=== PATIENT | female | born 1980 | race Caucasian/White ===

== ENCOUNTER → 2017-12-06 15:53 | Outpatient (CLI) | payer OTHER, SELFPAY ==
[2017-12-06 18:01] LABS: AST(SGOT) 16 U/L (15-37); Alanine Aminotransfer ALT/SGPT 19 U/L (13-56); Albumin, Serum 3.8 g/dL (3.2-5.0); Alkaline Phosphatase 52 U/L (45-117); Bilirubin, Direct < 0.05 mg/dL (0.00-0.30); Globulin 3.9 g/dL (2.2-4.2); Protein, Total 7.7 g/dL (6.4-8.2)
[2017-12-06 18:43] LABS: Absolute Lymphocyte Count 0.92 X10^3/ul (0.83-4.51); Absolute Neutrophil Count 3.8 X10^3/uL (2.0-7.7); Basophil# 0.02 X10^3/uL; Basophil% 0.4 % (0-1); Eosinophil# 0.13 X10^3/uL; Eosinophils% 2.4 % (0-5); Hematocrit 36.1 % (37-47); Hemoglobin 11.4 g/dl (12.0-15.0); Lymphocyte # 0.92 X10^3/ul (4.0); Lymphocyte % 17.1 % (19-41); Mean Corp Hgb Conc 31.6 g/gl (32-36); Mean Corpuscular Hgb 26.1 pg (27.0-32.0); Mean Corpuscular Volume 82.6 fL (81-99); Monocyte# 0.48 X10^3/uL; Monocyte% 8.9 % (0-10); Neutrophil # 3.81 X10^3/uL (2.7-7.7); Platelet Count 253 K/mm3 (150-450); RBC Distribution Width CV 14.2 % (11.6-14.6); RBC Distribution Width SD 42.4 fl (35.1-43.9); Red Blood Count 4.37 M/mm3 (4.2-5.4); White Blood Count 5.4 K/mm3 (4.4-11.0)
[2017-12-06 19:04] LABS: POSITIVE COUNT NO; POSITIVE DIFFERENTIAL NO; POSITIVE MORPHOLOGY NO
== END ==
PROVIDERS: Family Provider Internal Medicine Adolescent Medicine; PCP Internal Medicine Adolescent Medicine; Visit Provider Internal Medicine Gastroenterology
DX: K50.90 Crohn's disease, unspecified, without complications (principal)
CPT/HCPCS: 36415; 80076; 85025

== ENCOUNTER → 2018-04-12 09:53 | Outpatient (CLI) | payer OTHER, SELFPAY ==
--- NOTE | 2018-04-12 10:12 | BD_ITS ---
STUDY: DUAL ENERGY X-RAY ABSORPTIOMETRY / DXA REASON FOR EXAM: Female, 37 years old. History of Crohn's disease. Occasional prednisone use. No loss of height. TECHNIQUE: Bone Mineral Density (BMD) measurements of lumbar spine and bilateral hips were obtained. COMPARISON: None. FINDINGS: Lumbar Spine (L1-L4): g/cm2 (1.110) / T-score (-0.7) / Z-score (-0.7) Findings are suggestive of normal bone density with a low fracture risk. Left Femur Total: g/cm2 (0.875) / T-score (-1.0) / Z-score (-0.9) Left Femoral Neck: g/cm2 (0.867) / T-score (-1.2) / Z-score (-0.9) Right Femur Total: g/cm2 (0.859) / T-score (-1.2) / Z-score (-1.0) Right Femoral Neck: g/cm2 (0.811) / T-score (-1.6) / Z-score (-1.3) BD/Dexa Bone Density Study IMPRESSION: The patient is considered osteopenic as outlined below according to World Gurmeet Organization (WHO) criteria with a moderate fracture risk. Reference Information: The T-score is the number of standard deviations above or below the standard which is normal for young adults at their peak bone mineral density. The World Health Organization (WHO) interprets the T-scores as follows: Above -1 Normal bone density Between -1 and -2.5 Osteopenia Equal to / or below -2.5 Osteoporosis As a practical clinical guideline, osteopenia may be graded as follows: Mild -1 through -1.5 Moderate -1.6 through -2.0 Severe -2.1 through -2.4 The Z-score is the number of standard deviations above or below age-matched controls. A Z-score of less than -1.5 would be considered abnormal. References: 1. NIH Osteoporosis and Related Bone Diseases http://www.osteo.org 2. International Society for Clinical Densitometry http://www.iscd.org 3. National Osteoporosis Foundation http://www.nof.org Electronically Signed: Mitch Holbrook MD at 13:57 EST Tel [phone], Service support ,
== END ==
PROVIDERS: Family Provider Internal Medicine Adolescent Medicine; PCP Internal Medicine Adolescent Medicine; Referring Provider Internal Medicine Gastroenterology; Visit Provider Internal Medicine Gastroenterology
DX: K50.90 Crohn's disease, unspecified, without complications (principal)
CPT/HCPCS: 77080

== ENCOUNTER → 2018-04-24 18:42 | Outpatient (CLI) | payer OTHER, SELFPAY ==
[2018-04-27 15:09] LABS: HPV Reflexed? NOT INDICATED
--- OUTSIDE RECORDS SUMMARY | 2018-06-06 16:48 | XMS RPT_ITS ---
:1980 Author Organization OHIP Care Team Providers Name Role Phone Twan Enriquez Attending Unavailable Twan Enriquez Referring Unavailable Kendis, Laurie Primary Care Unavailable Twan Enriquez Attending Unavailable Twan Enriquez Referring Unavailable Kendis, Laurie Primary Care Unavailable Twan Enriquez Attending Unavailable Twan Enriquez Referring Unavailable Kendis, Laurie Primary Care Unavailable Nikki Blanton Attending Unavailable Kendis, Laurie Primary Care Unavailable Nikki Blanton Referring Unavailable Twan Enriquez Attending Unavailable Laurie Haque Primary Care Unavailable Richie Osorio Attending Unavailable Garland Laurie Referring Unavailable Garland, Laurie Primary Care Unavailable HardySarah R Attending Unavailable PROBLEMS PROBLEMS DATE TYPE CONDITION / ATTENDING STATUS SOURCE CODE 04/26/2018 Unknown Z12.4 - Nikki Blanton Active [place] Encounter for Community screening for Hospital malignant Repository neoplasm of cervix / Z12.4(ICD-10) 04/11/2018 Admitting Unknown / Sarah Dash Active [facility] Medical diagnosis UNK(Unknown) [facility] [place] Repository 01/13/2018 Admitting Malignant [place], Active [email or web address] Diagnosis melanoma of Richie System other part of Repository trunk / C43.59(ICD-10) 01/13/2018 Admitting Abnormal [place], [facility] Diagnosis results of Richie System function Repository studies of organs and systems / R94.8(ICD-10) PROCEDURES PROCEDURES No Procedure Records FoundRESULTS RESULTS Observed: 04/24/2018 Status: F Source: [facility] CULTURE, URINE 4:00 PM [facility] [place] Urine Culture ORGANISM 1: Streptococcus agalactiae (B) [place] Count 80,000-100,000 Streptococcus agalactiae (B): REACTION Ampicillin $ <=0.25 S Benzylpenicillin NF <=0.6 S Inducable Clindamycin Resistan - Linezolid $$$$ <=2 S Vancomycin $ 0.5 S (NF) indicates non-formulary drug at [facility]. Approval by Infectious Disease Specialist required before non-formulary drugs may be ordered and/or dispensed. * CLSI guidelines does not recommend testing of cephalosporins. This interpretation is deduced from Beta-lactam/penicillin results. Performed By: #### M100.0650 #### [facility] [address] [place], [place], [address] PAP I-G W/RFX HRHPV Collected: 04/24/2018 Status: F Source: [facility] 4:00 PM [facility] [place] [facility] Order Comment: Specimen Comment: No. of containers..01 ThinPrep Vial TYPE CODE TESTS RESULT OUT OF RANGE REFERENCE UNITS LAB L7400.0800 . Normal DIAGN Comment Result Comment: NEGATIVE FOR INTRAEPITHELIAL LESION AND MALIGNANCY. LAB L7400.0900 . Normal ADEQ Comment Result Comment: Satisfactory for evaluation. Endocervical and/or squamous metaplastic cells (endocervical component) are present. LAB L7400.1400 . Normal PERFORM Comment Result Comment: Jennifer Boss, Website Designer (ASCP) LAB L7400.2575 . Normal TEST METHOD Comment Result Comment: This liquid based ThinPrep(R) pap test was screened with the use of an image guided system. LAB L7400.2600 . Normal . COMM LAB L7400.2700 . Normal PAPSMR Comment Result Comment: The Pap smear is a screening test designed to aid in the detection of premalignant and malignant conditions of the uterine cervix. It is not a diagnostic procedure and should not be used as the sole means of detecting cervical cancer. Both false-positive and false-negative reports do occur. LAB L7400.2800 . Normal HPV RFLX Comment Result Comment: The HPV DNA reflex criteria were not met with this specimen result therefore, no HPV testing was performed. Performed at: [facility] [address] [id number] [place] Worker: Jenise Nath MD, Phone: [phone] Performed By: #### L7400.0350 #### [facility] (refer to report for specific site) refer to report for address and phone number DEXA BONE DENSITY Observed: 04/12/2018 Status: F Source: [facility] STUDY 9:57 AM [facility] [place] [facility] [facility] Imaging Services [address] [place] [address] Dexa Bone Density Study MR#: [id number] Acct: [id number] Name: FILOMENA NIÑONIMICHAEL Howard Rep #: [id number] : 1980 F 37 From: Mitch Holbrook MD PCP: Laurie Haque MD Status: [facility] Study: Dexa Bone Density Study Date of Exam: 04/12/18 Exam# [id number] Ordering Dr: Twan Enriquez MD STUDY: DUAL ENERGY X-RAY ABSORPTIOMETRY / DXA REASON FOR EXAM: Female, 37 years old. History of Crohn's disease. Occasional prednisone use. No loss of height. TECHNIQUE: Bone Mineral Density (BMD) measurements of lumbar spine and bilateral hips were obtained. COMPARISON: None. FINDINGS: Lumbar Spine (L1-L4): g/cm2 (1.110) / T-score (-0.7) / Z-score (-0.7) Findings are suggestive of normal bone density with a low fracture risk. Left Femur Total: g/cm2 (0.875) / T-score (-1.0) / Z- score (-0.9) Left Femoral Neck: g/cm2 (0.867) / T-score (-1.2) / Z- score (-0.9) Right Femur Total: g/cm2 (0.859) / T-score (-1.2) / Z- score (-1.0) Right Femoral Neck: g/cm2 (0.811) / T-score (-1.6) / Z-score (-1.3) BD/Dexa Bone Density Study IMPRESSION: The patient is considered osteopenic as outlined below according to World Gurmeet Organization (WHO) criteria with a moderate fracture risk. Reference Information: The T-score is the number of standard deviations above or below the standard which is normal for young adults at their peak bone mineral density. The World Health Organization (WHO) interprets the T-scores as follows: Above -1 Normal bone density Between -1 and -2.5 Osteopenia Equal to / or below -2.5 Osteoporosis As a practical clinical guideline, osteopenia may be graded as follows: Mild -1 through -1.5 Moderate -1.6 through -2.0 Severe -2.1 through -2.4 The Z-score is the number of standard deviations above or below age-matched controls. A Z-score of less than -1.5 would be considered abnormal. References: 1. NIH Osteoporosis and Related Bone Diseases http://www.osteo.org 2. International Society for Clinical Densitometry http://www.iscd.org 3. National Osteoporosis Foundation http://www.nof.org Electronically Signed: Mitch Holbrook MD at 13:57 EST Tel [phone], Service support , CC: Laurie Haque MD; Twan Enriquez Director Banking: Signed CBC W/DIFF Collected: 04/11/2018 Status: F Source: [facility] 11:10 AM [facility] REPOSITORY TYPE CODE TESTS RESULT OUT OF RANGE REFERENCE UNITS LAB L200.16873 4.5-11.0 K/CU MM WBC Normal 5.6 LAB L200.18784 3.90-5.30 M/CU MM RBC Normal 4.65 LAB L200.42171 11.5-15.5 G/DL HGB Normal 12.2 LAB L200.33641 35.0-47.0 % HCT Normal 40.0 LAB L200.27691 80.0-99.0 fl MCV Normal 86.0 LAB L200.48204 32.0-36.0 GM/DL Low MCHC 30.5 LAB L200.49368 11-14.5 RDW Normal 13.7 LAB L200.69905 9.4-12.4 MPV Normal 12.4 LAB L200.36532 150-450 K/CU MM PLT Normal 281 LAB L200.05119 45-75 % NEUTROPHILS Normal % 74.1 LAB L200.61380 Less than 2 % IMMATURE Normal GRAN % 0.4 LAB L200.14109 20-40 % Low LYMPH % 14.8 LAB L200.42728 2-10 % MONOCYTE % Normal 7.8 LAB L200.77597 0-5 % EOSINOPHIL Normal % 2.0 LAB L200.68929 0-2 % BASOPHIL % Normal 0.9 LAB L200.33719 2.0-8.3 K/CU MM NEUTROPHIL Normal ABS 4.20 LAB L200.65761 Less than 2 K/CU MM IMMATR GRAN Normal ABS 0.00 LAB L200.22265 0.9-4.4 K/CU MM Low LYMPH ABS 0.80 LAB L200.69209 0.1-1.1 K/CU MM MONO ABS Normal 0.40 LAB L200.23846 0-0.5 K/CU MM EOS ABS Normal 0.10 LAB L200.76683 0-0.2 K/CU MM BASO ABS Normal 0.10 LAB L200.40289 Less than 1 % NRBC Normal 0.0 Performed By: #### L200.57502 #### [facility] [address] [place] [address] # [phone] CMP Collected: 04/11/2018 Status: F Source: [facility] 11:10 AM [facility] REPOSITORY TYPE CODE TESTS RESULT OUT OF RANGE REFERENCE UNITS LAB L500.03916 136-145 MMOL/L Normal NA 139 LAB L500.49840 3.5-5.1 MMOL/L Normal K 5.1 LAB L500.48389 98-107 MMOL/L Normal CL 105 LAB L500.26518 21-32 MMOL/L Normal CO2 26 LAB L500.95449 5-16 MMOL/L Normal AGAP 7 LAB L500.01654 70-100 MG/DL Normal GLU 84 Result Comment: 70-100- Normal Fasting; 100-125 Impaired Fasting; greater than 126 on more than one result- Diabetes. ADA guidelines. Results may be falsely elevated after the administration of Sulfapyridine. Results may be falsely depressed after the administration of Sulfasalazine. LAB L500.73462 7-26 MG/DL Normal BUN 16 LAB L500.16564 0.510-0.950 MG/DL Normal CREAT 0.793 Result Comment: Patients receiving either N-Acetylcysteine (NAC) or Metamizole prior to venipuncture, may have falsely depressed results. LAB L500.15396 15-24 Normal BUN/CREA 20 LAB L500.39066 6.0-8.5 GM/DL Normal TP 8.1 LAB L500.16726 3.2-5.0 GM/DL Normal ALBUMIN 4.3 LAB L500.70840 2.2-4.2 GM/DL Normal GLOBULIN 3.8 LAB L500.50029 0.8-2.0 Normal A/G RATIO 1.1 LAB L500.47658 8.5-10.1 MG/DL Normal CALCIUM TOTAL 9.3 LAB L500.26876 0.2-1.0 MG/DL Normal BILI TOTAL 0.5 LAB L500.73815 8-34 U/L Normal SGOT (AST) 12 Result Comment: RESULTS MAY BE FALSELY DEPRESSED AFTER THE ADMINISTRATION OF SULFASALAZINE AND/OR SULFAPYRIDINE. LAB L500.64884 13-61 IU/L Normal SGPT (ALT) 17 Result Comment: RESULTS MAY BE FALSELY DEPRESSED AFTER THE ADMINISTRATION OF SULFASALAZINE AND/OR SULFAPYRIDINE. LAB L500.00639 45-117 U/L Normal ALK PHOS 58 Performed By: #### L500.56108, L500.95255, L500.55784, L500.93241, L550.89171 #### [facility] [place] [address] GFR EST Collected: 04/11/2018 Status: F Source: [facility] 11:10 AM [facility] REPOSITORY TYPE CODE TESTS RESULT OUT OF RANGE REFERENCE UNITS LAB L500.19338 ML/MIN Normal IF non-AFR Greater than AMER 60 LAB L500.56045 ML/MIN Normal IF Greater than AMER 60 Performed By: #### L500.41509, L500.49592, L500.21325, L500.92696, L550.05185 #### [facility] [address] [place] [address] LIPID Collected: 04/11/2018 Status: F Source: [facility] 11:10 AM [facility] REPOSITORY TYPE CODE TESTS RESULT OUT OF RANGE REFERENCE UNITS LAB L500.48859 30-149 MG/DL Normal TRIG 126 Result Comment: Patients receiving either N-Acetylcysteine (NAC) or Metamizole prior to venipuncture, may have falsely depressed results. LAB L500.66054 0-199 MG/DL High CHOL 209 LAB L500.79428 GREATER TN 40 MG/DL Normal HDL DIRECT 58 Result Comment: Patients receiving Metamizole prior to venipuncture, may have falsely depressed results. LAB L500.94535 0-129 MG/DL Normal LDL 126 Result Comment: ___CHOLESTEROL/HDL RATIO RISK___ CHD RISK = Total CHOL LDL HDL (CHOL/HDL) Recommended <200 <130 >35 <3.4 Borderline 200-239 130-159 3.4-4.99 High >240 >160 >5.0 Performed By: #### L500.32256, L500.72048, L500.76049, L500.07331, L550.55364 #### [facility] [place] [address] TSH Collected: 04/11/2018 Status: F Source: [facility] 11:10 AM [facility] REPOSITORY TYPE CODE TESTS RESULT OUT OF RANGE REFERENCE UNITS LAB L500.96176 0.358-3.740 UIU/ML Normal TSH 1.640 Result Comment: 3rd generation ultra sensitive TSH Performed By: #### L500.46449, L500.94736, L500.60375, L500.93134, L550.01225 #### [facility] [address] [place] [address] [id number] Collected: 04/11/2018 Status: F Source: [facility] 11:10 AM [facility] REPOSITORY TYPE CODE TESTS RESULT OUT OF RANGE REFERENCE UNITS LAB L550.53401 30.0-100.0 NG/ML Low 25.2 [id number] XY Result Comment: Deficiency Less than 20 ng/mL Insufficiency 20 - Less than 30 ng/mL Sufficiency 30 - 100 ng/mL Performed By: #### L500.10115, L500.92175, L500.02009, L500.86774, L550.66829 #### [facility] [address] [place] [id number] Observed: 04/11/2018 Status: F Source: [facility] URINE CULTURE 11:10 AM [facility] REPOSITORY ORGANISM 1: PROTEUS MIRABILIS COLONY COUNT >100,000 PROTEUS MIRABILIS: REACTION AMIKACIN <16 S AMPICILLIN <8 S CEFAZOLIN <8 S CEFEPIME <4 S CEFOTAXIME <2 S CEFTAZIDIME <1 S CEFUROXIME <4 S CIPROFLOXACIN <1 S GENTAMICIN <4 S ERTAPENEM <2 S NITROFURANTOIN >64 R PIPERACILLIN/TAZOBACTAM <16 S TOBRAMYCIN <4 S TRIMETH/SULFA <2/38 S LEVOFLOXACIN <2 S MEROPENEM <1 S ORGANISM 2: ESCHERICHIA COLI COLONY COUNT >100,000 ESCHERICHIA COLI: REACTION AMIKACIN <16 S AMPICILLIN >16 R CEFAZOLIN >16 R CEFEPIME <4 S CEFOTAXIME <2 S CEFTAZIDIME <1 S CEFUROXIME 8 S CIPROFLOXACIN <1 S GENTAMICIN <4 S IMIPENEM <1 S ERTAPENEM <2 S NITROFURANTOIN <32 S PIPERACILLIN/TAZOBACTAM <16 S TOBRAMYCIN <4 S TRIMETH/SULFA <2/38 S LEVOFLOXACIN <2 S MEROPENEM <1 S Performed By: #### M100.65114 #### [facility] [address] [place], [place] [address] NM LYMPHATICS - LYMPH Observed: 01/13/2018 Status: F Source: [email or web address] 10:14 AM SYSTEM REPOSITORY Patient Name: RERE NIÑO Nuc Med Exam Date/Time 01/13/2018 10:00:48 EDT Exam NM Lymphatics - Lymph Glands Imaging Ordering Physician Marcos OSORIO LAWRENCE Accession Number [id number] CPT4 Codes 45582 () Reason For Exam melanoma rt lat chest Report LYMPHOSCINTIGRAPHY CLINICAL INDICATION: Melanoma, right upper chest Approximately 1.1 millicuries of technetium 99-m ultrafiltered sulfur colloid was injected in four divided doses intradermally around the patient's lesion located on the right upper chest utilizing sterile technique. The patient tolerated the procedure well. COMPARISON: None FINDINGS: There was prompt migration of tracer into a single right axillary lymph node. A CD of the films was sent with the patient prior to surgery. Report Dictated on Final Dictated: 01/13/2018 10:14 am Dictating Physician: ADRI KENNEDY Signed Date and Time: 01/13/2018 10:14 am Signed by: ADRI KENNEDY Transcribed Date and Time: 01/13/2018 10:14 LIVER PROFILE Collected: 12/06/2017 Status: F Source: [facility] 3:58 PM [facility] [place] Order Comment: [id number] TYPE CODE TESTS RESULT OUT OF RANGE REFERENCE UNITS LAB L501.1500 6.4-8.2 g/dL Normal T PROT 7.7 LAB L501.1800 3.2-5.0 g/dL Normal ALB 3.8 LAB L501.1950 2.2-4.2 g/dL Normal GLOB 3.9 LAB L501.4100 15-37 U/L Normal AST 16 LAB L501.4305 45-117 U/L Normal ALK P 52 LAB L501.4405 13-56 U/L Normal ALT 19 LAB L501.4600 0.20-1.00 mg/dL Normal T BILI 0.20 LAB L501.4700 0.00-0.30 mg/dL Normal D BILI < 0.05 Performed By: #### L500.3400 #### [facility] [address] [place], [place], [address] CBC W/DIFF, AUTOMATED Collected: 12/06/2017 Status: F Source: [facility] 3:58 PM [facility] [place] [facility] TYPE CODE TESTS RESULT OUT OF RANGE REFERENCE UNITS LAB L100.1000 4.4-11.0 K/mm3 Normal WBC 5.4 LAB L100.1200 4.2-5.4 M/mm3 Normal RBC 4.37 LAB L100.1300 12.0-15.0 g/dl Low HGB 11.4 LAB L100.1400 37-47 % Low HCT 36.1 LAB L100.1500 81-99 fL Normal MCV 82.6 LAB L100.1600 27.0-32.0 pg Low MCH 26.1 LAB L100.1700 32-36 g/gl Low MCHC 31.6 LAB L100.1810 11.6-14.6 % Normal RDW CV 14.2 LAB L100.1820 35.1-43.9 fl Normal RDW SD 42.4 LAB L100.1900 150-450 K/mm3 Normal PLT 253 LAB L100.2000 6.2-12.0 fl Normal MPV 12.0 LAB L100.2100 47-70 % High NEUT% 71.0 LAB L100.2200 19-41 % Low LY% 17.1 LAB L100.2300 0-10 % Normal MONO% 8.9 LAB L100.2400 0-5 % Normal EO% 2.4 LAB L100.2500 0-1 % Normal BASO% 0.4 LAB L100.2550 0.0-0.9 % Normal IM GRAN % 0.200 Result Comment: IG% - Immature Granulocytes (promyelocytes, myelocytes and metamyelocytes) > 1% indicates that a LEFT SHIFT is Present. LAB L100.2620 2.0-7.7 X10 3/uL Normal Absolute Neut 3.8 LAB L100.2720 0.83-4.51 X10 3/ul Normal Absolute Lymph 0.92 Performed By: #### L100.0100 #### [facility] [address] [place], [address] CBC W/DIFF, AUTOMATED Collected: 06/07/2017 Status: F Source: [facility] 12:03 PM [facility] [place] TYPE CODE TESTS RESULT OUT OF RANGE REFERENCE UNITS LAB L100.1000 4.4-11.0 K/mm3 Normal WBC 6.4 LAB L100.1200 4.2-5.4 M/mm3 Normal RBC 4.82 LAB L100.1300 12.0-15.0 g/dl Normal HGB 13.1 LAB L100.1400 37-47 % Normal HCT 41.6 LAB L100.1500 81-99 fL Normal MCV 86.3 LAB L100.1600 27.0-32.0 pg Normal MCH 27.2 LAB L100.1700 32-36 g/gl Low MCHC 31.5 LAB L100.1810 11.6-14.6 % Normal RDW CV 13.5 LAB L100.1820 35.1-43.9 fl Normal RDW SD 42.0 LAB L100.1900 150-450 K/mm3 Normal PLT 345 LAB L100.2000 6.2-12.0 fl Normal MPV 11.3 LAB L100.2100 47-70 % Normal NEUT% 68.1 LAB L100.2200 19-41 % Normal LY% 19.6 LAB L100.2300 0-10 % Normal MONO% 9.9 LAB L100.2400 0-5 % Normal EO% 1.9 LAB L100.2500 0-1 % Normal BASO% 0.3 LAB L100.2550 0.0-0.9 % Normal IM GRAN % 0.200 Result Comment: IG% - Immature Granulocytes (promyelocytes, myelocytes and metamyelocytes) > 1% indicates that a LEFT SHIFT is Present. LAB L100.2620 2.0-7.7 X10 3/uL Normal Absolute Neut 4.3 LAB L100.2720 0.83-4.51 X10 3/ul Normal Absolute Lymph 1.25 Performed By: #### L100.0100 #### [facility] [address] [place] [address]. [place], [place], [address] LIVER PROFILE Collected: 06/07/2017 Status: F Source: [facility] 12:03 PM [facility] [place] [facility] TYPE CODE TESTS RESULT OUT OF RANGE REFERENCE UNITS LAB L501.1500 6.4-8.2 g/dL High T PROT 8.6 LAB L501.1800 3.4-5.0 g/dL Normal ALB 4.1 Result Comment: Please note revised Albumin AND Globulin reference range effective 2017. LAB L501.1950 2.2-4.2 g/dL High GLOB 4.5 LAB L501.4100 15-37 U/L Normal AST 26 LAB L501.4305 45-117 U/L Normal ALK P 79 LAB L501.4405 12-78 U/L Normal ALT 41 LAB L501.4600 0.20-1.00 mg/dL Normal T BILI 0.50 LAB L501.4700 0.00-0.30 mg/dL Normal D BILI 0.07 Performed By: #### L500.3400 #### [facility] [address] [place], [address] ALLERGIES ALLERGIES DATE TYPE / CODE NAME / CODE REACTION SEVERITY SOURCE 03/29/2017 Drug No Known Unknown [facility] Allergy/4160 Allergies/F00 Hospital 00551(SNOMED 5638135(RXNOR Repository CT) M) ENCOUNTERS ENCOUNTERS ADMIT/DISCHARGE ACCOUNT NUMBER ADMITTING ENCOUNTER LOCATION SOURCE CLASS 05/04/2018 [id number] [facility] ding:LAB.FUT Repository URE 04/24/2018 [id number] [facility] ding:LABSPEC Repository 04/12/2018 [id number] [facility] ding:OPBD Repository 04/11/2018 [id number] [facility] [place] ng:H.ELS 01/13/2018 [id number] [facility] Repository 12/06/2017 [id number] [facility] ding:MTLAB Repository 06/07/2017 [id number] [facility] ding:MTLAB Repository PAYERS PAYERS ENCOUNTER GUARANTOR PAYER SUBSCRIBER SOURCE 05/04/2018 A[facility]BEL [id number] [facility] [address]Oaj: (330) Number: Effective Repository [phone] () Date:2018-05-04 04/24/2018 ANABEL [id number] Primary ANABEL KEYOB: [facility] Insurance:MEDICAL [id number] [id number]: (330) Number: Repository [phone] () [id number] Date:[id number] [address] [address]DG: 04/24/2018 Secondary NOT GIVENUNK [place] Insurance:SELF PAY [facility] Number: Effective Repository Date:2018-04-24 04/12/2018 ANABEL E [id number] Primary ANABEL E STINEDOB: [place] [facility] Insurance:MEDICAL [id number] Health [id number]: (330) Number: Repository [phone] () [id number] Date:[id number] [address] [address]OT: 04/12/2018 Secondary NOT GIVENUNK [place] Insurance:SELF PAY [facility] Number: Effective Repository Date:2018-04-04 04/11/2018 RERE Howard Primary ANABEL STINECritical access hospital Medical [id number] THERESE Insurance:[facility] PPO ACCESS/Policy Repository [place], [place] Number: [phone]: 330 [id number] [phone] (HP) Date: 01/13/2018 Rere Howard Primary Anabel StineDOB: [facility] Snapshot Interactive StineDOB: Insurance:Medical [id number] System [id number] [facility] Number: Effective [place], [place] Date: [address]Vnm: (HP) 12/06/2017 Anabel E [id number] Primary Anabel E StineDOB: [place] [facility] Insurance:MEDICAL [id number] Health [id number]: (330) Number: Repository [phone] () [id number] Date:0502-41-49TS [address] [address]DJ: 12/06/2017 Secondary NOT GIVENUNK [place] Insurance:SELF PAY [facility] Number: Effective Repository Date:2017-12-06 06/07/2017 Anabel E [id number] Primary Anabel E StineDOB: [place] [facility] Insurance:MEDICAL [id number] [facility] [address]Oqh: (330) Number: Repository [phone] () [id number] Date:[address] [address]RN: 06/07/2017 Secondary NOT GIVENUNK [place] Insurance:SELF PAY [facility] Number: Effective Repository Date:2017-06-07
--- OUTSIDE RECORDS SUMMARY | 2018-06-06 16:48 | XMS RPT_ITS ---
:1980 Author Organization [facility] Address [address] [place] [address] Phone Care Team Providers Name Role Phone Anita Osorio MD Unavailable Reason for Visit Reason For Visit Description Start Date New - 1st visit with practice Preliminary reason for visit data, not yet signed by the author as of melanoma right lateral chest Preliminary reason for visit data, not yet signed by the author as of Chief Complaint Chief Complaint Description Start Date melanoma right lateral chest Preliminary chief complaint data, not yet signed by the author as of Instructions Instruction Description Start Date Completed Plan of Care Type Date Detail Appointment 01:00 PM Anita Osorio MD, [address] [facility], [facility], [place], [address], Medications Medication Instructions Start Stop Generic Name NDC Provider Date Date IRON 142 (45 takes 2 tablets FERROUS [id number] Salud Fe) MG CR-TABS daily 8 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 Vital Signs Date Name Value Unit Description BMI (Body Mass 22.03 kg/m2 Body Mass Index Index) [Ratio] Preliminary vital sign data, not yet signed by the author as of BP Diastolic 82 mm[Hg] blood pressure, diastolic Preliminary vital sign data, not yet signed by the author as of BP Systolic 134 mm[Hg] blood pressure, systolic Preliminary vital sign data, not yet signed by the author as of Heart Rate 88 /min pulse rate E&M Preliminary vital sign data, not yet signed by the author as of Height 62 [in_us] height E&M Preliminary vital sign data, not yet signed by the author as of Height 157 cm height in centimeters E&M Preliminary vital sign data, not yet signed by the author as of Weight Measured 120 [lb_av] weight E&M Preliminary vital sign data, not yet signed by the author as of Weight Measured 55 kg weight in kilograms E&M Preliminary vital sign data, not yet signed by the author as of Results Date Name Value Unit Range Flag Description Office Visit: New - 1st visit with practice, Rm: MEDS REVIEW Done Documentation of current medications (procedure) Preliminary observation data, not yet signed by the author as of Preliminary observation data, not yet signed by the author as of Clinical Summary: HMSPatientID POP account number Clinical Lists Update: Preload Extended SMOK STATUS never smoker Tobacco smoking status NDIS Clinical Summary: Scanned History Summary DEP EXERCISE No data entered by patient, exercise history DEP DRUG USE No data entered by patient, drug (of abuse) use DEP SH CSMO never smoker data entered by patient, social history, current smoker DEP ETOH USE No data entered by patient, alcohol (ethanol or ETOH) use [facility] 2 floors housing unit size (asthma environmental history, housing) (from single family to don't know) #DEP CHLDRN Yes Number of dependent children [place] house Housing Type: apartment, house, fpc, trailer, none DEP SH MAST data entered by patient, social history, marital status DEP EMPLOYER unemployed data entered by patient, Employer Name DEP ALG LIST I don't have any Data entered by Drug AllergiesI patient, allergy don't have any list Environmental AllergiesI don't have any Food Allergies DEP MED LIST [id number] Data entered by injection-Every patient, other medication list [id number] SISTER A/D I do not have any sister of sisters. My patient(s) alive sister(s)' health or history is unknown. BROTHERS A/D I do not have any brother(s) of brothers. My patient alive or brother(s)' health history is unknown. MOTHER A/D Alive mother of patient is alive or DEP MOM PMH High blood data entered by pressure patient, mother's medical history FATHER A/D Alive father of patient is alive or DEP DAD PMH Heart diseaseHigh data entered by blood pressure patient, father's medical history DEP PMH Crohn's disease data entered by patient, past medical history DEP SURGERY section Data entered by patient, history of past surgeries Procedures Code Procedure Name Date Entry Date G8732 Pain assessment not documented - reason not given G8427 Current medications documented 1036F Tobacco screening was negative - non user G8420 BMI documented within normal parameters - no follow-up plan is required G8783 Blood pressure within normal parameters - no follow-up required [id number] Patient Encounter Medications Administered No information available. Immunizations No information available. Advance Directives There may be information available, but it has not been provided by the sender. Assessments There may be information available, but it has not been provided by the sender. Review of Systems There may be information available, but it has not been provided by the sender. Family History There may be information available, but it has not been provided by the sender. History of Past Illness There may be information available, but it has not been provided by the sender. History of Present Illness There may be information available, but it has not been provided by the sender.
== END ==
PROVIDERS: Family Provider Internal Medicine Adolescent Medicine; PCP Internal Medicine Adolescent Medicine; Referring Provider Obstetrics & Gynecology; Visit Provider Obstetrics & Gynecology
DX: Z12.4 Encounter for screening for malignant neoplasm of cervix (principal)
CPT/HCPCS: 87077; 87086; 87088; 87186; 88175; G0145

== ENCOUNTER → 2018-08-16 11:04 | Outpatient (CLI) | payer OTHER, SELFPAY ==
[2018-08-16 14:03] LABS: Absolute Lymphocyte Count 1.06 X10^3/ul (0.83-4.51); Absolute Neutrophil Count 5.2 X10^3/uL (2.0-7.7); Basophil# 0.02 X10^3/uL; Basophil% 0.3 % (0-1); Eosinophil# 0.14 X10^3/uL; Hematocrit 40.9 % (37-47); Hemoglobin 12.6 g/dl (12.0-15.0); Lymphocyte # 1.06 X10^3/ul (4.0); Lymphocyte % 15.5 % (19-41); Mean Corp Hgb Conc 30.8 g/gl (32-36); Mean Corpuscular Hgb 25.8 pg (27.0-32.0); Mean Corpuscular Volume 83.8 fL (81-99); Mean Platelet Vol. 11.7 fl (6.2-12.0); Monocyte# 0.48 X10^3/uL; Neutrophil # 5.15 X10^3/uL (2.7-7.7); Neutrophil % 75.1 % (47-70); POSITIVE COUNT NO; POSITIVE DIFFERENTIAL NO; POSITIVE MORPHOLOGY NO; Platelet Count 283 K/mm3 (150-450); RBC Distribution Width CV 13.2 % (11.6-14.6); RBC Distribution Width SD 39.8 fl (35.1-43.9); Red Blood Count 4.88 M/mm3 (4.2-5.4); White Blood Count 6.9 K/mm3 (4.4-11.0)
[2018-08-16 14:20] LABS: AST(SGOT) 20 U/L (15-37); Alanine Aminotransfer ALT/SGPT 20 U/L (13-56); Albumin, Serum 3.8 g/dL (3.2-5.0); Alkaline Phosphatase 52 U/L (45-117); Bilirubin, Direct 0.08 mg/dL (0.00-0.30); Globulin 4.3 g/dL (2.2-4.2); Protein, Total 8.1 g/dL (6.4-8.2)
[2018-08-16 14:23] LABS: Vitamin D,25 Hydroxy 42.1 ng/mL (29.95-100.01)
== END ==
PROVIDERS: Family Provider Internal Medicine Adolescent Medicine; PCP Internal Medicine Adolescent Medicine; Referring Provider Internal Medicine Gastroenterology; Visit Provider Internal Medicine Gastroenterology
DX: K50.90 Crohn's disease, unspecified, without complications (principal)
CPT/HCPCS: 36415; 80076; 82306; 85025

== ENCOUNTER → 2020-10-21 | Outpatient (CLI) | payer OTHER, SELFPAY ==
[2020-10-21 14:47] VITALS: BMI 28.5
[2020-10-25 14:25] LABS: HPV APTIMA, High Risk Negative (Negative)
== END | disposition home or self-care (01) ==
LOC: LABSPEC 16:20
PROVIDERS: Referring Provider Obstetrics & Gynecology; Visit Provider Obstetrics & Gynecology
DX: Z12.4 Encounter for screening for malignant neoplasm of cervix (principal)
CPT/HCPCS: 87624; 88175; G0145

== ENCOUNTER → 2020-11-11 12:56 | Outpatient (CLI) | payer OTHER, SELFPAY ==
[2020-10-21 14:47] VITALS: BMI 28.5
--- NOTE | 2020-11-11 13:00 | BD_ITS ---
STUDY: DUAL ENERGY X-RAY ABSORPTIOMETRY / DXA REASON FOR EXAM: Female, 40 years old. K50.00 -- CROHN''S TECHNIQUE: Bone Mineral Density (BMD) measurements of lumbar spine and bilateral hips were obtained. COMPARISON: Comparison is made with prior study 04/12/2018. FINDINGS: Lumbar Spine (L1-L4): g/cm2 (1.214) / T-score (0.3) / Z-score (0.3) Findings are suggestive of normal bone density with a low fracture risk. Left Femur Total: g/cm2 (0.899) / T-score (-0.9) / Z-score (-0.7) Left Femoral Neck: g/cm2 (0.845) / T-score (-1.4) / Z-score (-1.0) Right Femur Total: g/cm2 (0.873) / T-score (-1.1) / Z-score (-0.9) Right Femoral Neck: g/cm2 (0.780) / T-score (-1.9) / Z-score (-1.4) The T-Scores on the most recent prior examination were: Lumbar Spine (L1-L4): There has been improvement of bone density since the previous examination. Left Femur Total: which represents an improvement of 2.7%. Right Femur Total: which represents an improvement of 1.6%. BD/Dexa Bone Density Study IMPRESSION: The patient is considered osteopenic as outlined below according to World [employer] Organization (WHO) criteria with a moderate fracture risk. There has been improvement of bone density since the previous examination. Reference Information: The T-score is the number of standard deviations above or below the standard which is normal for young adults at their peak bone mineral density. The World Health Organization (WHO) interprets the T-scores as follows: Above -1 Normal bone density Between -1 and -2.5 Osteopenia Equal to / or below -2.5 Osteoporosis As a practical clinical guideline, osteopenia may be graded as follows: Mild -1 through -1.5 Moderate -1.6 through -2.0 Severe -2.1 through -2.4 The Z-score is the number of standard deviations above or below age-matched controls. A Z-score of less than -1.5 would be considered abnormal. References: 1. NIH Osteoporosis and Related Bone Diseases www osteo.org 2. International Society for Clinical Densitometry www iscd.org 3. National Osteoporosis Foundation www nof.org Electronically Signed: Mitch Holbrook MD at 15:38 EDT , Service support ,
== END ==
PROVIDERS: Referring Provider Internal Medicine Gastroenterology; Visit Provider Internal Medicine Gastroenterology
DX: K50.00 Crohn's disease of small intestine without complications (principal); R19.7 Diarrhea, unspecified
CPT/HCPCS: 77080

== ENCOUNTER → 2021-04-27 11:26 | Outpatient (CLI) | payer OTHER, SELFPAY ==
[2020-10-21 14:47] VITALS: BMI 28.5
--- NOTE | 2021-04-27 11:30 | BI_ITS ---
MAMMOGRAPHY - BILATERAL SCREENING REASON FOR EXAM: Female, 41 years old. Routine annual screening examination. PERTINENT HISTORY: Non-contributory. TECHNIQUE: Digital bilateral breast abigail (3D mammographic acquisition) in the CC and MLO projections. 2-D mediolateral oblique (MLO) and craniocaudad (CC) views of both breasts were obtained. CAD: Full Field Digital Mammography with Computer Added Detection was performed. COMPARISON: Comparison is made with prior chest examination dated 02/18/2020. FINDINGS: Breast Composition: The breasts are extremely dense, which lowers the sensitivity of mammography. There are no dominant masses or suspicious calcifications. No other significant abnormalities are identified. There has been no significant change since the prior study. BI/SCRN MAMM (CAD)W/ABIGAIL BILAT IMPRESSION: Stable bilateral screening mammogram. Yearly follow-up mammogram recommended. (A) ASSESSMENT CATEGORY: BIRADS Category 1: Negative. A letter regarding these results will be sent to the patient by the facility within 30 days. Approximately 10% of breast cancers are not detected by mammography. A normal mammogram should not delay biopsy of a clinically suspicious abnormality. [id number] Electronically Signed: Mitch Holbrook MD at 14:45 EST , Service support ,
== END ==
PROVIDERS: Referring Provider Obstetrics & Gynecology; Visit Provider Obstetrics & Gynecology
DX: Z12.31 Encounter for screening mammogram for malignant neoplasm of breast (principal)
CPT/HCPCS: 77063; 77067

== ENCOUNTER → 2021-10-29 | Outpatient (CLI) | payer OTHER, SELFPAY ==
[2021-11-03 16:42] LABS: HPV APTIMA, High Risk Negative (Negative)
== END | disposition home or self-care (01) ==
LOC: LABSPEC 16:27
PROVIDERS: Visit Provider Obstetrics & Gynecology
DX: Z01.419 Encounter for gynecological examination (general) (routine) without abnormal findings (principal)
CPT/HCPCS: 87624; 88175; G0145

== ENCOUNTER 2022-05-03 08:39 | Outpatient (CLI) | payer OTHER, SELFPAY ==
--- NOTE | 2022-05-03 08:41 | BI_ITS ---
MAMMOGRAPHY - BILATERAL SCREENING REASON FOR EXAM: Female, 42 years old. Routine annual screening examination. PERTINENT HISTORY: Non-contributory. TECHNIQUE: Digital bilateral breast abigail (3D mammographic acquisition) in the CC and MLO projections. 2-D mediolateral oblique (MLO) and craniocaudad (CC) views of both breasts were obtained. CAD: Full Field Digital Mammography with Computer Added Detection was performed. COMPARISON: Comparison is made with prior study dated 04/27/2021. FINDINGS: Breast Composition: The breasts are extremely dense, which lowers the sensitivity of mammography. There are no dominant masses or suspicious calcifications. No other significant abnormalities are identified. There has been no significant change since the prior study. BI/SCRN MAMM (CAD)W/ABIGAIL BILAT IMPRESSION: Stable bilateral screening mammogram. Yearly follow-up mammogram recommended. (A) ASSESSMENT CATEGORY: BIRADS Category 1: Negative. A letter regarding these results will be sent to the patient by the facility within 30 days. Approximately 10% of breast cancers are not detected by mammography. A normal mammogram should not delay biopsy of a clinically suspicious abnormality. [id number] Electronically Signed: Mitch Holbrook MD at 9:32 EST ,
== END 2022-05-03 23:59 | disposition home or self-care (01) ==
LOC: OPBI 08:39
PROVIDERS: Visit Provider Obstetrics & Gynecology
DX: Z12.31 Encounter for screening mammogram for malignant neoplasm of breast (principal)
CPT/HCPCS: 77063; 77067

== ENCOUNTER → 2022-11-23 | Outpatient (CLI) | payer OTHER, SELFPAY ==
[2022-11-26 20:08] LABS: HPV APTIMA, High Risk Negative (Negative)
== END | disposition home or self-care (01) ==
LOC: LABSPEC 14:25
PROVIDERS: Referring Provider Obstetrics & Gynecology; Visit Provider Obstetrics & Gynecology
DX: Z01.419 Encounter for gynecological examination (general) (routine) without abnormal findings (principal)
CPT/HCPCS: 87624; 88175; G0145

== ENCOUNTER → 2023-05-09 | Outpatient (CLI) | payer OTHER, SELFPAY ==
--- NOTE | 2023-05-09 10:55 | BI_ITS ---
MAMMOGRAPHY - BILATERAL SCREENING REASON FOR EXAM: Female, 43 years old. Routine annual screening examination. PERTINENT HISTORY: Non-contributory. TECHNIQUE: Digital bilateral breast abigail (3D mammographic acquisition) in the CC and MLO projections. 2-D mediolateral oblique (MLO) and craniocaudad (CC) views of both breasts were obtained. CAD: Full Field Digital Mammography with Computer Added Detection was performed. COMPARISON: Comparison is made with prior study May 03, 2022 and April 27, 2021. FINDINGS: Breast Composition: The breasts are extremely dense, which lowers the sensitivity of mammography. There are no dominant masses or suspicious calcifications. No other significant abnormalities are identified. There has been no significant change since the prior study. BI/SCRN MAMM (CAD)W/ABIGAIL BILAT IMPRESSION: Stable bilateral screening mammogram. Yearly follow-up mammogram recommended. (A) ASSESSMENT CATEGORY: BIRADS Category 1: Negative. A letter regarding these results will be sent to the patient by the facility within 30 days. Approximately 10% of breast cancers are not detected by mammography. A normal mammogram should not delay biopsy of a clinically suspicious abnormality. [id number] Electronically Signed: Mitch Holbrook MD at 12:45 EST ,
== END | disposition home or self-care (01) ==
LOC: OPBI 10:55
PROVIDERS: Referring Provider Obstetrics & Gynecology; Visit Provider Obstetrics & Gynecology
DX: Z12.31 Encounter for screening mammogram for malignant neoplasm of breast (principal)
CPT/HCPCS: 77063; 77067

== ENCOUNTER → 2023-11-28 | Outpatient (CLI) | payer OTHER, SELFPAY ==
[2023-12-02 15:08] LABS: HPV APTIMA, High Risk Negative (Negative)
== END | disposition home or self-care (01) ==
LOC: LABSPEC 12:10
PROVIDERS: Referring Provider Obstetrics & Gynecology; Visit Provider Obstetrics & Gynecology
DX: Z12.4 Encounter for screening for malignant neoplasm of cervix (principal)
CPT/HCPCS: 87624; 88175; G0145

== ENCOUNTER → 2024-05-28 | Outpatient (CLI) | payer OTHER, SELFPAY ==
--- NOTE | 2024-05-28 10:14 | BI_ITS ---
MAMMOGRAPHY - BILATERAL SCREENING 3-D TOMOSYNTHESIS REASON FOR EXAM: Female, 44 years old. Screening for breast cancer PERTINENT HISTORY: No significant family history. TECHNIQUE: 2-D mammograms and 3-D Tomosynthesis of the breast (s) were performed. CAD was performed. COMPARISON: 05/09/2023 FINDINGS: The breast composition is heterogeneously dense that can obscure small breast masses. Scattered benign calcifications are seen. No dense spiculated masses or suspicious microcalcifications are identified. No architectural distortion is identified. There is no skin thickening or retraction. There has been no significant change since the prior study. BI/SCRN MAMM (CAD)W/ABIGAIL BILAT IMPRESSION: No mammographic signs of malignancy. Routine yearly mammograms recommended. ASSESSMENT CATEGORY: BIRADS Category 1: Negative. A letter regarding these results will be sent to the patient by the facility within 30 days. FOLLOW UP RECOMMENDATION: Yearly follow up mammogram recommended. (A) Approximately 10% of breast cancers are not detected by mammography. A normal mammogram should not delay biopsy of a clinically suspicious abnormality. Electronically Signed: Parveen Perea MD at 20:40 EST ,
== END | disposition home or self-care (01) ==
LOC: OPBI 10:14
PROVIDERS: Referring Provider Obstetrics & Gynecology; Visit Provider Obstetrics & Gynecology
DX: Z12.31 Encounter for screening mammogram for malignant neoplasm of breast (principal)
CPT/HCPCS: 77063; 77067

== ENCOUNTER → 2024-12-07 | Outpatient (CLI) | payer OTHER, SELFPAY | END | disposition home or self-care (01) | LOC: LABSPEC 14:26 | PROVIDERS: Visit Provider Obstetrics & Gynecology | DX: Z12.4 Encounter for screening for malignant neoplasm of cervix (principal); D84.9 Immunodeficiency, unspecified | CPT/HCPCS: 87624; 88175; G0145 ==